=== PATIENT | female | born 1940 | race Caucasian/White ===

== ENCOUNTER 2017-09-17 17:58 | Emergency (ER) | payer OTHER ==
[~2017-09-17] VITALS: Ht 165.1 cm; Wt 81.6 kg
--- NOTE | 2017-09-17 18:05 | NUR ---
CALLED PT AT FOR TRIAGE NO ANSWER.
[2017-09-17 18:17] VITALS: BP 141/79
== END 2017-09-17 18:34 | disposition home or self-care (01) ==
LOC: ER 18:00
DX: L98.9 Disorder of the skin and subcutaneous tissue, unspecified (principal); E11.9 Type 2 diabetes mellitus without complications
CPT/HCPCS: 99281; A4606; Z7610; Z7502

== ENCOUNTER 2021-07-06 13:23 | Emergency (ER) | payer OTHER ==
[~2021-07-06] VITALS: Ht 160 cm; Wt 77.1 kg
--- NOTE | 2021-07-06 14:01 | NUR ---
THE PATIENT BIBS FOR INJURED RIGHT GREAT TOE, AND 3RD AND 4TH TOES,LEFT FOOT, CONCERNED BECAUSE SHE'S DIABETIC. DENIES PAIN. WILL CONTINUE TO MONITOR THE PATIENT.
--- NOTE | 2021-07-06 15:06 | NUR ---
X-RAY TECH AT THE BEDSIDE
[2021-07-06 18:17] VITALS: BP 123/75
--- NOTE | 2021-07-06 18:17 | NUR ---
Patient discharged to home in stable condition. Written and verbal after care instructions given. Patient verbalizes understanding of instruction.
== END 2021-07-06 18:17 | disposition home or self-care (01) ==
LOC: ER 13:25
DX: B35.1 Tinea unguium (principal); E11.9 Type 2 diabetes mellitus without complications; E07.9 Disorder of thyroid, unspecified; Z98.890 Other specified postprocedural states; Z60.2 Problems related to living alone
CPT/HCPCS: 73630-TC